=== PATIENT | female | born 1945 | race African-American/Black ===

== ENCOUNTER 2023-11-04 10:34 | Inpatient (IN) | payer MEDICARE, MEDICAID ==
[~2023-11-04] VITALS: Ht 162.6 cm; Wt 68.3 kg
[~2023-11-04 10:34] MED LIST: ALEN70TA84 MT; AMLO10TA4 MT; ASPI-1497 MT; LIP40 MT; METO25TA6 PO
[2023-11-04 10:42] VITALS: RESP 26
[2023-11-04 11:21] LABS: HEMATOCRIT. 21.6 % (36.0-48.0); MEAN CORPUSCULAR HGB CONC 30.3 g/dL (31.0-37.0); MEAN CORPUSCULAR VOLUME 89.1 fL (81.0-99.0); MEAN PLATELET VOLUME 8.8 fl (7.4-10.4); PLATELET 847 x1000/uL (130-400); RED BLOOD CELL COUNT 2.43 mill/uL (4.2-5.4); RED CELL DISTRIBUTION WIDTH 21.9 % (11.6-14.6)
[2023-11-04 11:25] LABS: DIFFERENTIAL COMMENT 1
[2023-11-04 11:26] LABS: CHLORIDE 101 mEq/L (98-107); POTASSIUM 3.9 mEq/L (3.5-5.1); SODIUM 134 mEq/L (136-145)
[2023-11-04 11:27] LABS: CALCIUM 7.7 mg/dL (8.7-10.4); CARBON DIOXIDE 21 mEq/L (21-32); HEMOGLOBIN. 6.5 g/dL (12.0-16.0)
[2023-11-04 11:30] LABS: BG DEOXYHEMOGLOBIN 0.1 % (0.0-5.0); BG FRACTION INSPIRED OXYGEN 100; BG HCO3 ACT 18.4 mmol/L (22.0-26.0); BG METHEMOGLOBIN 0.1 % (0.0-1.5); BG OXYGEN SATURATION 99.9 % (92.0-98.5); BG OXYHEMOGLOBIN 95.8 % (94.0-97.0); BG PCO2 23.6 mmHg (35.0-45.0); BG PO2 482.9 mmHg (75.0-100.0); BG SAMPLE SITE LEFT BRACHIAL; BG TOTAL HEMOGLOBIN 7.1 g/dL (12.0-18.0); BG TOTAL RESPIRATORY RATE 43 b/min; BG VENT MODE MASK - BIPAP
[2023-11-04 11:32] LABS: CREATININE 1.1 mg/dL (0.6-1.0); GLUCOSE 71 mg/dL (70-105); UREA NITROGEN BLOOD 26 mg/dL (9-23)
[2023-11-04 11:34] LABS: TROPONIN I HIGH SENSITIVITY 12 ng/L (3.0-34)
[2023-11-04] MEDS: FUROSEMIDE 40MG/4ML VIAL IVP NR (11:35)
[2023-11-04 12:40] LABS: NUCLEATED RED BLOOD CELLS 12 /100 WBC
[2023-11-04 12:41] LABS: ANISOCYTOSIS 3+; OVALOCYTES 1+; PLATELET ESTIMATE MARKEDLY INCREASED
[2023-11-04] MEDS: SODIUM CHLORIDE 0.9% 500 ML IV ONE (13:30)
[2023-11-04] MEDS: PIPERACILLIN/TAZO 3.375G/50ML 50 ML IV ONE (13:49)
[2023-11-04] MEDS: VANCOMYCIN 1G PREMIX 200 ML IV ONE (13:57)
[2023-11-04 15:16] LABS: LACTIC ACID 5.4 mmol/L (0.4-2.0)
[2023-11-04 15:29] VITALS: RESP 22
[2023-11-04] MEDS ORDERED: MAGNESIUM/ALUMINUM HYDROXIDE/SIMETHICONE 30ML UDC PO PRN (16:45)
[2023-11-04] MEDS ORDERED: IPRATROPIUM/ALBUTEROL 0.5-3(2.5)MG/3ML NEB HHN PRN (16:45)
[2023-11-04] MEDS ORDERED: DOCUSATE SODIUM 100MG CAPSULE PO PRN (16:45)
[2023-11-04] MEDS ORDERED: CLONIDINE 0.1MG TABLET PO PRN (16:45)
[2023-11-04] MEDS ORDERED: ACETAMINOPHEN 650MG/20.3ML UDC GT PRN (16:45)
[2023-11-04] MEDS ORDERED: GUAIFENESIN 200MG/10ML SUGAR FREE UDC PO PRN (16:45)
[2023-11-04] MEDS ORDERED: BUDESONIDE 0.25MG/2ML NEB HHN SCH (18:00)
[2023-11-04] MEDS: IPRATROPIUM/ALBUTEROL 0.5-3(2.5)MG/3ML NEB HHN SCH (18:00)
[2023-11-04 19:04] LABS: IRON 15 ug/dL (50-170)
[2023-11-04 19:07] LABS: PHOSPHORUS 2.9 mg/dL (2.5-4.9); TOTAL IRON BINDING CAPACITY 360 ug/dl (250-425)
[2023-11-04 19:10] LABS: VITAMIN B12 SERUM 1467 pg/mL (211-911)
[2023-11-04 19:11] LABS: FERRITIN 337 ng/mL (10-291)
[2023-11-04 19:27] LABS: FOLIC ACID (FOLATE) SERUM 2.91 ng/mL (>5.38)
[2023-11-04] MEDS: SODIUM CHLORIDE 0.9% 1,000 ML IV SCH (19:38)
[2023-11-04] MEDS: ATORVASTATIN CALCIUM 40MG TABLET PO SCH (21:45)
[2023-11-04] MEDS: PIPERACILLIN/TAZO 3.375G/50ML 50 ML IV SCH (23:05)
[2023-11-05] VITALS (9 sets, daily range): BP systolic 107–121; BP diastolic 29–63; PULSE 103–113; RESP 16–23; TEMP 97.6–98.3; O2SAT 100
[2023-11-05] MEDS: VANCOMYCIN 500MG/100ML IV SCH (04:16)
[2023-11-05] MEDS: BUDESONIDE 0.5MG/2ML NEB HHN SCH (08:08)
[2023-11-05 08:34] LABS: BG BASE EXCESS 4.4 mmol/L (-2.0-2.0); BG CARBOXYHEMOGLOBIN 3.5 % (0.5-1.5); BG DEOXYHEMOGLOBIN 0.3 % (0.0-5.0); BG FRACTION INSPIRED OXYGEN 32; BG HCO3 ACT 27.4 mmol/L (22.0-26.0); BG METHEMOGLOBIN 0.1 % (0.0-1.5); BG OXYGEN SATURATION 99.7 % (92.0-98.5); BG OXYHEMOGLOBIN 96.1 % (94.0-97.0); BG PCO2 34.2 mmHg (35.0-45.0); BG PH 7.522 (7.350-7.450); BG PO2 144.2 mmHg (75.0-100.0); BG SAMPLE SITE RIGHT RADIAL; BG TOTAL HEMOGLOBIN 7.7 g/dL (12.0-18.0); BG VENT MODE NASAL CANNULA
[2023-11-05] MEDS: ALENDRONATE SODIUM 35MG TABLET PO SCH (09:00)
[2023-11-05] MEDS: FUROSEMIDE 40MG/4ML VIAL IV SCH (09:00)
[2023-11-05 09:59] LABS: HEMATOCRIT. 25.6 % (36.0-48.0); HEMOGLOBIN. 7.9 g/dL (12.0-16.0); MEAN CORPUSCULAR HEMOGLOBIN 26.9 pg (28.0-32.0); MEAN CORPUSCULAR VOLUME 86.8 fL (81.0-99.0); MEAN PLATELET VOLUME 9.4 fl (7.4-10.4); PLATELET 323 x1000/uL (130-400); RED BLOOD CELL COUNT 2.95 mill/uL (4.2-5.4); RED CELL DISTRIBUTION WIDTH 21.4 % (11.6-14.6); WHITE BLOOD COUNT 28.7 x1000/uL (4.5-11.0)
[2023-11-05 10:07] LABS: DIFFERENTIAL COMMENT 1
[2023-11-05] MEDS: MAGNESIUM 2 G PREMIX 50 ML IV NR (10:30)
[2023-11-05 10:52] LABS: BG BASE EXCESS 1.1 mmol/L (-2.0-2.0); BG CARBOXYHEMOGLOBIN 3.9 % (0.5-1.5); BG DEOXYHEMOGLOBIN 7.2 % (0.0-5.0); BG FRACTION INSPIRED OXYGEN 100; BG HCO3 ACT 24.5 mmol/L (22.0-26.0); BG OXYGEN SATURATION 92.5 % (92.0-98.5); BG OXYHEMOGLOBIN 88.9 % (94.0-97.0); BG PCO2 33.6 mmHg (35.0-45.0); BG PO2 63.1 mmHg (75.0-100.0); BG SAMPLE SITE RIGHT BRACHIAL; BG VENT MODE MASK - NRB
[2023-11-05 11:10] LABS: THYROID STIMULATING HORMONE 1.48 uIU/mL (0.55-4.78)
[2023-11-05 11:12] LABS: TRIGLYCERIDE 114 mg/dL (0-150)
[2023-11-05 11:13] LABS: CHOLESTEROL 53 mg/dL (<200); LDL CHOLESTEROL 6 mg/dL (5-100)
[2023-11-05 11:14] LABS: HDL CHOLESTEROL < 20 mg/dL (>65)
[2023-11-05] MEDS: SODIUM CHLORIDE 0.9% 1,000 ML IV ONE (12:45)
[2023-11-05 14:53] LABS: ANISOCYTOSIS 3+; PLATELET ESTIMATE NORMAL
[2023-11-05 15:00] LABS: BG BASE EXCESS 3.6 mmol/L (-2.0-2.0); BG CARBOXYHEMOGLOBIN 3.2 % (0.5-1.5); BG DEOXYHEMOGLOBIN 0.2 % (0.0-5.0); BG FRACTION INSPIRED OXYGEN 100; BG METHEMOGLOBIN 0.1 % (0.0-1.5); BG OXYGEN SATURATION 99.8 % (92.0-98.5); BG OXYHEMOGLOBIN 96.5 % (94.0-97.0); BG PCO2 35.7 mmHg (35.0-45.0); BG PH 7.497 (7.350-7.450); BG PO2 302.8 mmHg (75.0-100.0); BG SAMPLE SITE LEFT RADIAL; BG TOTAL HEMOGLOBIN 7.8 g/dL (12.0-18.0); BG VENT MODE MASK - NRB
[2023-11-05] MEDS ORDERED: DIATR MEGLU/DIATRIZOATE SOLN 30ML PO SCH (17:30)
[2023-11-05] MEDS ORDERED: IPRATROPIUM/ALBUTEROL 0.5-3(2.5)MG/3ML NEB HHN PRN (17:30)
[2023-11-05] MEDS ORDERED: ENOXAPARIN 60MG/0.6ML SYR SUBCUT NR (19:00)
[2023-11-05 22:12] LABS: TROPONIN I HIGH SENSITIVITY 39 ng/L (3.0-34)
[2023-11-05 22:17] LABS: INR 1.5; PROTHROMBIN TIME 16.4 sec (9.6-11.0)
[2023-11-05 22:29] LABS: TROPONIN I HIGH SENSITIVITY 37 ng/L (3.0-34)
[2023-11-05] MEDS: ENOXAPARIN 60MG/0.6ML SYR SUBCUT SCH (22:48)
[2023-11-05] MEDS ORDERED: IOHEXOL-350 100 ML BOTTLE ONE (23:15)
[2023-11-06] VITALS (19 sets, daily range): BP systolic 91–114; BP diastolic 20–63; PULSE 88–112; RESP 13–34; TEMP 87.8–98.6; O2SAT 97–100
[2023-11-06] MEDS: ACETYLCYSTEINE 200MG/ML 20% VIAL 4ML INH SCH (00:37)
[2023-11-06] MEDS: SODIUM CHLORIDE 3% FOR INH 4ML NEB INH NR (00:38)
[2023-11-06 06:40] LABS: HEMATOCRIT 28.9 % (36.0-48.0); HEMOGLOBIN 9.2 g/dL (12.0-16.0); MEAN CORPUSCULAR HGB CONC 31.9 g/dL (31.0-37.0); MEAN CORPUSCULAR VOLUME 84.7 fL (81.0-99.0); PLATELET 217 x1000/uL (130-400); RED BLOOD CELL COUNT 3.41 mill/uL (4.2-5.4); RED CELL DISTRIBUTION WIDTH 19.1 % (11.6-14.6); WHITE BLOOD COUNT 15.1 x1000/uL (4.5-11.0)
[2023-11-06 07:11] LABS: CARBON DIOXIDE 26 mEq/L (21-32); CHLORIDE 103 mEq/L (98-107); POTASSIUM 2.9 mEq/L (3.5-5.1); SODIUM 137 mEq/L (136-145)
[2023-11-06 07:12] LABS: CALCIUM 6.8 mg/dL (8.7-10.4)
[2023-11-06 07:17] LABS: CREATININE 1.2 mg/dL (0.6-1.0); GLUCOSE 121 mg/dL (70-105); UREA NITROGEN BLOOD 33 mg/dL (9-23)
[2023-11-06 07:18] LABS: TROPONIN I HIGH SENSITIVITY 32 ng/L (3.0-34)
[2023-11-06 07:19] LABS: PHOSPHORUS 2.9 mg/dL (2.5-4.9)
[2023-11-06] MEDS: POTASSIUM CHLORIDE 20MEQ/PACKET PO NR (09:48)
[2023-11-06] MEDS: SODIUM CHL 0.9% + KCL 20MEQ/L 1,000 ML IV ONE (09:49)
[2023-11-06] MEDS ORDERED: LIDOCAINE HCL 1% 10 MG/ML 10ML VIAL ONE (10:13)
[2023-11-06] MEDS: ACETAMINOPHEN 650MG/20.3ML UDC GT PRN (11:27)
[2023-11-06 16:56] LABS: CLARITY URINE TURBID (CLEAR); COLOR URINE DARK YELLOW (YELLOW); GLUCOSE URINE NEGATIVE (NEGATIVE); KETONES URINE NEGATIVE (NEGATIVE); LEUKOCYTE ESTERASE URINE 3+ (NEGATIVE); NITRITE URINE NEGATIVE (NEGATIVE); OCCULT BLOOD URINE 3+ (NEGATIVE); PROTEIN URINE 1+ (NEGATIVE); SPECIFIC GRAVITY URINE 1.044 (1.005-1.030)
[2023-11-06 17:19] LABS: BACTERIA URINE 2+; RBC URINE 25-50 /hpf (0-2); SQUAMOUS EPITHELIAL CELL URINE 2+ /lpf (RARE/1+); WBC URINE 15-25 /hpf (0-2)
[2023-11-06] MEDS: AZITHROMYCIN 500 MG TABLET PO SCH (17:43)
[2023-11-06] MEDS: ACETAMINOPHEN 650MG/20.3ML UDC PO SCH (18:59)
[2023-11-06] MEDS: FOLIC ACID/VITAMIN B COMP W-C TABLET PO SCH (18:59)
[2023-11-06] MEDS: MORPHINE SULFATE 2 MG/ML INJ (NOT FOR IM USE) IV NR (20:40)
[2023-11-06] MEDS: HYDROCODONE/ACETAMINOPHEN 5/325MG TABLET PO NR (22:13)
[2023-11-07] VITALS (25 sets, daily range): BP systolic 59–148; BP diastolic 18–78; PULSE 102–119; RESP 16–39; TEMP 97.4–98.8; O2SAT 90–100
[2023-11-07] MEDS: KETOROLAC 15MG/ML VIAL IV NR (00:44)
[2023-11-07] MEDS: ACETAMINOPHEN 650MG/20.3ML UDC PO SCH (03:12)
[2023-11-07] MEDS: VANCOMYCIN 750MG/250ML IV SCH (04:40)
[2023-11-07 08:11] LABS: ALPHA FETOPROTEIN TUMOR MARKER < 1.8 ng/mL (0.0-9.2); CA 19-9 29 U/mL (0-35); CARCINOEMBRYONIC AG - SEND OUT 0.9 ng/mL (0.0-4.7)
[2023-11-07 08:31] LABS: HEMATOCRIT. 32.9 % (36.0-48.0); HEMOGLOBIN. 10.2 g/dL (12.0-16.0); MEAN CORPUSCULAR HEMOGLOBIN 26.7 pg (28.0-32.0); MEAN CORPUSCULAR HGB CONC 31.2 g/dL (31.0-37.0); MEAN CORPUSCULAR VOLUME 85.7 fL (81.0-99.0); MEAN PLATELET VOLUME 10.2 fl (7.4-10.4); PLATELET 121 x1000/uL (130-400); RED BLOOD CELL COUNT 3.84 mill/uL (4.2-5.4); RED CELL DISTRIBUTION WIDTH 19.6 % (11.6-14.6); WHITE BLOOD COUNT 5.9 x1000/uL (4.5-11.0)
[2023-11-07 08:36] LABS: POTASSIUM 4.1 mEq/L (3.5-5.1)
[2023-11-07 08:49] LABS: CREATININE 1.8 mg/dL (0.6-1.0)
[2023-11-07 09:17] LABS: DIFFERENTIAL COMMENT 1
[2023-11-07] MEDS ORDERED: AZITHROMYCIN 250 MG in DEXT 5% WATER 250 ML IV SCH (11:15)
[2023-11-07] MEDS: DEXT 5%/LACTATED RINGERS 1,000 ML IV SCH (11:42)
[2023-11-07] MEDS: PANTOPRAZOLE SODIUM 40 MG/VIAL IV SCH (11:42)
[2023-11-07] MEDS: HYDROCODONE/ACETAMINOPHEN 5/325MG TABLET PO PRN (11:43)
[2023-11-07 12:46] LABS: BG BASE EXCESS -10.3 mmol/L (-2.0-2.0); BG CARBOXYHEMOGLOBIN 2.8 % (0.5-1.5); BG DEOXYHEMOGLOBIN 2.5 % (0.0-5.0); BG FRACTION INSPIRED OXYGEN 32; BG HCO3 ACT 13.8 mmol/L (22.0-26.0); BG METHEMOGLOBIN 0.1 % (0.0-1.5); BG OXYGEN SATURATION 97.4 % (92.0-98.5); BG OXYHEMOGLOBIN 94.6 % (94.0-97.0); BG PCO2 25.4 mmHg (35.0-45.0); BG PH 7.353 (7.350-7.450); BG PO2 92.7 mmHg (75.0-100.0); BG SAMPLE SITE RIGHT BRACHIAL; BG TOTAL HEMOGLOBIN 10.1 g/dL (12.0-18.0); BG VENT MODE NASAL CANNULA
[2023-11-07 12:47] LABS: HEMATOCRIT 32.7 % (36.0-48.0); HEMOGLOBIN 10.1 g/dL (12.0-16.0)
[2023-11-07] MEDS: CEFTRIAXONE 2GM/50ML 50 ML IV SCH (13:22)
[2023-11-07] MEDS: IRON SUCROSE COMPLEX 100 MG/5 ML ML IV SCH (15:17)
[2023-11-07 18:16] LABS: PLATELET ESTIMATE DECREASED
[2023-11-07 18:17] LABS: ANISOCYTOSIS 1+
[2023-11-07 19:11] LABS: BG BASE EXCESS -16.2 mmol/L (-2.0-2.0); BG CARBOXYHEMOGLOBIN 2.3 % (0.5-1.5); BG DEOXYHEMOGLOBIN 0.2 % (0.0-5.0); BG FRACTION INSPIRED OXYGEN 100; BG HCO3 ACT 10.4 mmol/L (22.0-26.0); BG METHEMOGLOBIN 0.2 % (0.0-1.5); BG OXYGEN SATURATION 99.8 % (92.0-98.5); BG OXYHEMOGLOBIN 97.3 % (94.0-97.0); BG PCO2 27.5 mmHg (35.0-45.0); BG PH 7.197 (7.350-7.450); BG PO2 452.1 mmHg (75.0-100.0); BG SAMPLE SITE RIGHT BRACHIAL; BG TOTAL HEMOGLOBIN 9.3 g/dL (12.0-18.0); BG VENT MODE MASK - NRB
[2023-11-07] MEDS ORDERED: SODIUM CHLORIDE 0.9% 500 ML IV NR (19:45)
[2023-11-07] MEDS: SODIUM BICARBONATE 8.4% 50MEQ/50ML SYR IV NR (19:47)
[2023-11-07] MEDS: DEXT 5%/0.9% NACL 1,000 ML IV SCH (20:00)
[2023-11-07 22:12] LABS: HEMOGLOBIN 8.3 g/dL (12.0-16.0); MEAN CORPUSCULAR HEMOGLOBIN 27.2 pg (28.0-32.0); MEAN CORPUSCULAR HGB CONC 29.7 g/dL (31.0-37.0); MEAN CORPUSCULAR VOLUME 91.7 fL (81.0-99.0); PLATELET 82 x1000/uL (130-400); RED BLOOD CELL COUNT 3.05 mill/uL (4.2-5.4); RED CELL DISTRIBUTION WIDTH 21.1 % (11.6-14.6); WHITE BLOOD COUNT 7.8 x1000/uL (4.5-11.0)
[2023-11-07 22:20] LABS: POTASSIUM 5.5 mEq/L (3.5-5.1)
[2023-11-07 22:21] LABS: CALCIUM 6.5 mg/dL (8.7-10.4)
[2023-11-07 22:26] LABS: CREATININE 2.1 mg/dL (0.6-1.0)
[2023-11-07] MEDS ORDERED: NOREPINEPHRINE 8MG/250ML PMX 250 ML IV PRN (22:26)
[2023-11-07 22:36] LABS: LACTIC ACID 15.1 mmol/L (0.4-2.0)
[2023-11-07] MEDS: SODIUM BICARBONATE 100 MEQ in SODIUM CHLORIDE 0.45% 900 ML IV SCH (22:51)
[2023-11-07] MEDS: PHENYLEPHRINE 100 MG in DEXT 5% WATER 240 ML IV PRN (22:52)
[2023-11-08] VITALS (102 sets, daily range): BP systolic 44–169; BP diastolic 11–108; PULSE 0–187; RESP 0–38; TEMP 97.9–98.8; O2SAT 99
[2023-11-08] MEDS ORDERED: ETOMIDATE 2MG/ML 10ML VIAL IV ONE (01:00)
[2023-11-08] MEDS: DEXTROSE 50% WATER 50ML SYRINGE IV PRN (01:25)
[2023-11-08] MEDS: MORPHINE SULFATE 2 MG/ML INJ (NOT FOR IM USE) IV NR (01:26)
[2023-11-08 01:29] LABS: BG BASE EXCESS -13.8 mmol/L (-2.0-2.0); BG CARBOXYHEMOGLOBIN 2.9 % (0.5-1.5); BG DEOXYHEMOGLOBIN 3.5 % (0.0-5.0); BG FRACTION INSPIRED OXYGEN 100%; BG HCO3 ACT 12.4 mmol/L (22.0-26.0); BG METHEMOGLOBIN 0.1 % (0.0-1.5); BG OXYGEN SATURATION 96.4 % (92.0-98.5); BG OXYHEMOGLOBIN 93.5 % (94.0-97.0); BG PCO2 29.8 mmHg (35.0-45.0); BG PH 7.236 (7.350-7.450); BG PO2 89.9 mmHg (75.0-100.0); BG SAMPLE SITE RIGHT BRACHIAL; BG TOTAL HEMOGLOBIN 9.8 g/dL (12.0-18.0); BG VENT MODE MASK - NRB
[2023-11-08] MEDS: SODIUM BICARBONATE 8.4% 50MEQ/50ML SYR IV NR (01:57)
[2023-11-08 02:07] LABS: HEMATOCRIT 27.6 % (36.0-48.0); HEMOGLOBIN 8.4 g/dL (12.0-16.0)
[2023-11-08] MEDS: FENTANYL 2500MCG/250ML PMX 250 ML IV PRN (02:08)
[2023-11-08] MEDS: MIDAZOLAM 100MG/100ML PMX 100 ML IV PRN (02:09)
[2023-11-08] MEDS: SODIUM CHLORIDE 0.9% 500 ML IV NR (02:10)
[2023-11-08 03:18] LABS: BG BASE EXCESS -11.4 mmol/L (-2.0-2.0); BG CARBOXYHEMOGLOBIN 2.3 % (0.5-1.5); BG DEOXYHEMOGLOBIN 0.3 % (0.0-5.0); BG FRACTION INSPIRED OXYGEN 100; BG HCO3 ACT 15.8 mmol/L (22.0-26.0); BG METHEMOGLOBIN 0.1 % (0.0-1.5); BG OXYGEN SATURATION 99.7 % (92.0-98.5); BG OXYHEMOGLOBIN 97.3 % (94.0-97.0); BG PCO2 40.9 mmHg (35.0-45.0); BG PH 7.205 (7.350-7.450); BG SAMPLE SITE LEFT FEMORAL; BG TOTAL HEMOGLOBIN 9.3 g/dL (12.0-18.0); BG VENT MODE VENT - AC
[2023-11-08 05:21] LABS: HEMATOCRIT. 28.7 % (36.0-48.0); HEMOGLOBIN. 8.4 g/dL (12.0-16.0); MEAN CORPUSCULAR HEMOGLOBIN 26.9 pg (28.0-32.0); MEAN CORPUSCULAR HGB CONC 29.3 g/dL (31.0-37.0); MEAN CORPUSCULAR VOLUME 91.6 fL (81.0-99.0); RED BLOOD CELL COUNT 3.14 mill/uL (4.2-5.4); RED CELL DISTRIBUTION WIDTH 20.9 % (11.6-14.6)
[2023-11-08 05:23] LABS: DIFFERENTIAL COMMENT 1
[2023-11-08 05:30] LABS: CHLORIDE 101 mEq/L (98-107); POTASSIUM 5.6 mEq/L (3.5-5.1); SODIUM 139 mEq/L (136-145)
[2023-11-08 05:31] LABS: CALCIUM 6.5 mg/dL (8.7-10.4); CARBON DIOXIDE 16 mEq/L (21-32)
[2023-11-08] MEDS: NOREPINEPHRINE 32 MG in DEXT 5% WATER 218 ML IV PRN (05:35)
[2023-11-08 05:36] LABS: CREATININE 2.3 mg/dL (0.6-1.0); GLUCOSE 214 mg/dL (70-105); UREA NITROGEN BLOOD 53 mg/dL (9-23)
[2023-11-08 05:38] LABS: ALANINE AMINOTRANSFERASE 242 IU/L (10-49); ASPARTATE AMINOTRANSFERASE > 1000 IU/L (<34); BILIRUBIN DIRECT 0.5 mg/dL (<=3.0); BILIRUBIN TOTAL 0.6 mg/dL (0.1-1.0)
[2023-11-08 05:50] LABS: INR 1.9; PROTHROMBIN TIME 20.5 sec (9.6-11.0)
[2023-11-08 05:51] LABS: PROTEIN TOTAL 5.3 g/dL (6.0-8.3)
[2023-11-08] MEDS ORDERED: ATROPINE SULFATE 1MG/10ML SYR ONE ×2 (06:00→08:00)
[2023-11-08] MEDS: SODIUM CHLORIDE 0.9% 500 ML IV STA (06:36)
[2023-11-08] MEDS: INSULIN REGULAR (HUMULIN R) 1000UNITS/10ML VIAL IV NR (06:37)
[2023-11-08] MEDS: VASOPRESSIN 20 UNIT in SODIUM CHLORIDE 0.9% 99 ML IV PRN (07:49)
[2023-11-08] MEDS: INSULIN LISPRO 100 UNITS/ML SUBCUT SCH (08:00)
[2023-11-08] MEDS ORDERED: DEXTROSE 50% WATER 50ML SYRINGE IV PRN ×2 (08:45→15:00)
[2023-11-08] MEDS: BLOOD SUGAR DIAGNOSTIC STRIP TEST SCH (08:58)
[2023-11-08] MEDS ORDERED: SODIUM POLYSTYRENE SULFONATE 15 G/60 ML BOT PO ONE (09:15)
[2023-11-08] MEDS ORDERED: NALOXONE HCL 0.4MG/ML VIAL IV PRN (09:30)
[2023-11-08 09:32] LABS: CARBON DIOXIDE 12 mEq/L (21-32); CHLORIDE 105 mEq/L (98-107); SODIUM 140 mEq/L (136-145)
[2023-11-08 09:33] LABS: CALCIUM 6.2 mg/dL (8.7-10.4)
[2023-11-08 09:38] LABS: CREATININE 2.5 mg/dL (0.6-1.0); GLUCOSE 292 mg/dL (70-105); UREA NITROGEN BLOOD 55 mg/dL (9-23)
[2023-11-08 09:39] LABS: ALANINE AMINOTRANSFERASE 333 IU/L (10-49); ASPARTATE AMINOTRANSFERASE > 1000 IU/L (<34)
[2023-11-08 09:40] LABS: ALBUMIN 1.7 g/dL (3.2-4.8); BILIRUBIN TOTAL 0.5 mg/dL (0.1-1.0); PROTEIN TOTAL 4.4 g/dL (6.0-8.3)
[2023-11-08 09:45] LABS: HEMATOCRIT 24.5 % (36.0-48.0)
[2023-11-08 10:25] LABS: POTASSIUM 6.5 mEq/L (3.5-5.1)
[2023-11-08] MEDS: DEXT 5%/0.9% NACL 1,000 ML IV SCH (10:36)
[2023-11-08 10:56] LABS: ALBUMIN 1.5 g/dL (3.2-4.8)
[2023-11-08 11:21] LABS: PREALBUMIN < 5.0 mg/dl (10.0-40.0)
[2023-11-08 11:50] LABS: CHLORIDE 106 mEq/L (98-107); SODIUM 142 mEq/L (136-145)
[2023-11-08 11:52] LABS: CALCIUM 6.6 mg/dL (8.7-10.4)
[2023-11-08 11:56] LABS: CREATININE 2.7 mg/dL (0.6-1.0)
[2023-11-08 11:57] LABS: GLUCOSE 102 mg/dL (70-105); UREA NITROGEN BLOOD 54 mg/dL (9-23)
[2023-11-08 12:21] LABS: LACTIC ACID 22.7 mmol/L (0.4-2.0)
[2023-11-08 12:24] LABS: POTASSIUM 7.3 mEq/L (3.5-5.1)
[2023-11-08 12:25] LABS: CARBON DIOXIDE < 10 mEq/L (21-32)
[2023-11-08 13:32] LABS: PLATELET 126 x1000/uL (130-400)
[2023-11-08] MEDS: SODIUM ZIRCONIUM CYCLOSILICATE 10GM/PACKET PO NR (13:36)
[2023-11-08 13:39] LABS: NUCLEATED RED BLOOD CELLS 1 /100 WBC
[2023-11-08 13:40] LABS: PLATELET ESTIMATE SLIGHTLY DECREASED; TOXIC VACUOLATION 1+
[2023-11-08 13:41] LABS: ROULEAUX 1+
[2023-11-08 13:43] LABS: ANISOCYTOSIS 1+
[2023-11-08] MEDS ORDERED: LIDOCAINE HCL 1% 10 MG/ML 10ML VIAL ONE (14:02)
[2023-11-08] MEDS: DEXTROSE 50% WATER 50ML SYRINGE IV NR (15:13)
[2023-11-08] MEDS ORDERED: DEXT 10% WATER 1,000 ML IV SCH (15:15)
[2023-11-08] MEDS ORDERED: DEXT 10%/0.9% NACL 1,000 ML IV SCH (15:30)
[2023-11-08] MEDS: EPINEPHRINE 10 MG in SODIUM CHLORIDE 0.9% 240 ML IV PRN (15:32)
[2023-11-08] MEDS: DOPAMINE 800MG PREMIX (DOUBLE) 250 ML IV PRN (15:35)
[2023-11-08] MEDS ORDERED: SODIUM CHLORIDE 23.4% 154 MEQ in DEXT 10% WATER 961.5 ML IV SCH ×2 (15:45→16:30)
[2023-11-08] MEDS ORDERED: SODIUM BICARBONATE 150 MEQ in DEXTROSE 5% WATER 850 ML IV SCH (16:30)
[2023-11-08 17:45] LABS: CHLORIDE 105 mEq/L (98-107); SODIUM 144 mEq/L (136-145)
[2023-11-08 17:51] LABS: CREATININE 2.5 mg/dL (0.6-1.0); GLUCOSE 320 mg/dL (70-105); UREA NITROGEN BLOOD 45 mg/dL (9-23)
[2023-11-08 18:01] LABS: HEPATITIS B SURFACE ANTIGEN NEGATIVE (Negative)
[2023-11-08 18:03] LABS: CARBON DIOXIDE < 10 mEq/L (21-32)
[2023-11-08 18:22] LABS: HEPATITIS A AB IGM NEGATIVE (Negative); HEPATITIS B CORE AB IGM NEGATIVE (Negative)
[2023-11-08 18:23] LABS: HEPATITIS C AB NON REACTIVE (Neg) (Negative)
== END 2023-11-08 17:09 | DRG 720 ==
LOC: ER 10:58 → 5WST 13:04 → EDBEDREQSVC 13:08 → EDBEDREQ 13:08 → EDBEDREQTM 13:08 → 5EST 11-05 14:15 → MICUNO 11-07 21:59
PROVIDERS: ADMIT Internal Medicine; ATTEND Internal Medicine
PROC: 5A09357 Assistance with Respiratory Ventilation, Less than 24 Consecutive Hours, Continuous Positive Airway Pressure (ICD-10-PCS; principal; 2023-11-04)
PROC: 02HV33Z Insertion of Infusion Device into Superior Vena Cava, Percutaneous Approach (ICD-10-PCS; 2023-11-06)
PROC: 5A1935Z Respiratory Ventilation, Less than 24 Consecutive Hours (ICD-10-PCS; 2023-11-08)
PROC: 5A12012 Performance of Cardiac Output, Single, Manual (ICD-10-PCS; 2023-11-08)
PROC: 30233N1 Transfusion of Nonautologous Red Blood Cells into Peripheral Vein, Percutaneous Approach (ICD-10-PCS; 2023-11-08)
PROC: 0BH17EZ Insertion of Endotracheal Airway into Trachea, Via Natural or Artificial Opening (ICD-10-PCS; 2023-11-08)
DX: A41.51 Sepsis due to Escherichia coli [E. coli] (principal); J96.01 Acute respiratory failure with hypoxia; K72.00 Acute and subacute hepatic failure without coma; J69.0 Pneumonitis due to inhalation of food and vomit; R65.21 Severe sepsis with septic shock; L89.153 Pressure ulcer of sacral region, stage 3; N17.9 Acute kidney failure, unspecified; I74.11 Embolism and thrombosis of thoracic aorta; K92.0 Hematemesis; D63.8 Anemia in other chronic diseases classified elsewhere; E78.5 Hyperlipidemia, unspecified; J90 Pleural effusion, not elsewhere classified; E11.9 Type 2 diabetes mellitus without complications; I10 Essential (primary) hypertension; E86.0 Dehydration; S90.32XA Contusion of left foot, initial encounter; S90.31XA Contusion of right foot, initial encounter; X58.XXXA Exposure to other specified factors, initial encounter; E87.5 Hyperkalemia; K80.20 Calculus of gallbladder without cholecystitis without obstruction; Z20.822 Contact with and (suspected) exposure to COVID-19; J98.19 Other pulmonary collapse; M81.0 Age-related osteoporosis without current pathological fracture; N13.6 Pyonephrosis; Z79.82 Long term (current) use of aspirin; Z79.899 Other long term (current) drug therapy; Z90.710 Acquired absence of both cervix and uterus; I69.354 Hemiplegia and hemiparesis following cerebral infarction affecting left non-dominant side; Z91.419 Personal history of unspecified adult abuse; Z99.3 Dependence on wheelchair; Y93.89 Activity, other specified; Y92.89 Other specified places as the place of occurrence of the external cause; Y99.8 Other external cause status; Z74.01 Bed confinement status; Z86.74 Personal history of sudden cardiac arrest; Z87.891 Personal history of nicotine dependence
CPT/HCPCS: 31500; 36415; 36573; 36600; 71045; 71275; 74018; 75635; 76770; 80048; 80053; 80061; 80076; 80202; 81003; 82040; 82105; 82375; 82378; 82550; 82607; 82728; 82746; 82805; 82962; 83036; 83540; 83550; 83605; 83735; 83880; 84100; 84134; 84145; 84439; 84443; 84484; 85014; 85018; 85025; 85027; 85379; 86301; 86304; 86705; 86709; 86850; 86900; 86920; 87077; 87186; 87340; 87426; 87804; 92523; 93005; 93306; 93970; 94003; 94640; 94660; 99285; C1725; J0461; J0696; J1265; J1642; J1650; J1815; J1885; J1940; J2270; J2470; J2543; J3370; J3475; J3480; J3490; J7040; J7050; J7060; J7070; J7131; J7608; J7626; P9016; Q9967